=== PATIENT | male | born 1990 | race Caucasian/White ===

== ENCOUNTER 2020-07-10 15:24 | Outpatient (REF) | payer OTHER, SELFPAY | END 2020-07-10 15:25 | disposition home or self-care (01) | LOC: HO.LAB 15:24 | PROVIDERS: PCP Internal Medicine; Visit Provider Internal Medicine | DX: Z20.828 Contact with and (suspected) exposure to other viral communicable diseases (principal) | CPT/HCPCS: 87635 ==

== ENCOUNTER 2022-06-28 13:00 | Emergency (ER) | payer OTHER, SELFPAY ==
[2022-06-28 13:22] VITALS: BP 165/96; PULSE 95; RESP 18; TEMP 36.8; O2SAT 97; BMI 48.1
[2022-06-28] MEDS: Cyclobenzaprine HCl 10 MG TABLET PO (14:03)
--- NOTE | 2022-06-28 14:03 | ED.BACK ---
HPI - Back Pain/Injury General Chief Complaint: Back Pain/Injury Stated Complaint: lower back pain Time Seen by Provider: 06/28/22 13:21 Source: patient Mode of arrival: EMS Limitations: no limitations History of Present Illness HPI Narrative: Patient presents emergency department for evaluation of lower back pain. Reports onset to be about 4 days ago. Was having some mild discomfort to the right lower back, but seems to have exacerbated since yesterday. States he was attempting to stretch when he felt onset of a very bad muscle spasm. Pain at times is radiating to the right leg posterior and medial thigh. Last night he took methocarbamol it is prescribed to his father and he did have some relief with that medication. At 09:00 today he took ibuprofen 400 mg orally, and acetaminophen 500 mg orally. He denies any injury, states that he does sit for prolonged periods for work. Reports a history of similar pain in the past however pain has typically been on left previously and not as severe as it is currently. Denies recent precipitating injury, fevers, chills, burning with micturition, urinary frequency/urgency/hesitancy, bladder or bowel dysfunction, numbness or tingling of the perineum or bilateral legs. Denies any recent surgical procedures, any known immune compromising conditions, personal history of cancer, or IV drug usage. MD elicited complaint: back pain Related Data Previous Rx's Medication Instructions Recorded cyclobenzaprine 10 mg tablet 10 mg PO TID PRN muscle spasm #20 06/28/22 tabs prednisone 50 mg tablet 50 mg PO DAILY 5 days #5 tabs 06/28/22 Allergies Allergy/AdvReac Type Severity Reaction Status Date / Time No Known Drug Allergies Allergy Unknown Verified 06/28/22 13:22 Review of Systems Review of Systems: Constitutional: No weight loss, fever, chills, weakness or fatigue. HEENT: No visual loss, blurred vision, double vision. No hearing loss, sneezing, congestion, runny nose or sore throat. Skin: No rash or itching. Cardiovascular: No chest pain, chest pressure or chest discomfort. No palpitations or pedal edema. Respiratory: No shortness of breath, cough or sputum production. Gastrointestinal: No anorexia, nausea, vomiting or diarrhea. No abdominal pain or blood in stool. Genitourinary: No burning micturition. No urinary frequency or incontinence. Neurologic: No headache, dizziness, syncope, unilateral weakness, ataxia, numbness or tingling in the extremities. No change in bowel or bladder control. Musculoskeletal: + Back pain as noted in HPI. No joint pain or stiffness. Hematologic: No bleeding or bruising. Lymphatics: No enlarged lymph nodes. Psychiatric:No depression or anxiety. Endocrine: No reports of sweating. No cold or heat intolerance. No polyuria or polydipsia. Yes all other systems are reviewed and are negative PMFSH Past Medical History Attestation statement: The following information was validated with the patient. Source: old records reviewed Social History Social History Advance Directives: No Advance Directives Information Provided: No Physical Exam Vital Signs: Vital Signs: Last Vital Signs Temp 98.2 F 06/28/22 13:22 Pulse 95 06/28/22 13:22 Resp 18 06/28/22 13:22 BP 165/96 H 06/28/22 13:22 Pulse Ox 97 06/28/22 13:22 O2 Del Method 06/28/22 13:22 BMI result Body Mass Index 48.1 Vital signs have been reviewed as normal and appeared to be correct. Blood pressure normal.? Heart rate normal.? Respiration rate normal. Temperature normal.? Oxygen saturation normal. Appearance: Alert.?Oriented to person, place and time. No acute distress.?Normal affect. Eyes: Pupils equal, round and reactive to light.? ENT: Pharynx normal.?? Neck: Normal inspection.? Neck supple.?? CVS: Heart sounds normal. Normal heart rate and rhythm.? Pulses normal; bilateral radial pulses 2+, bilateral posterior tibial/dorsalis pedis pulses 2+.? Respiratory: No respiratory distress.? Lung sounds clear to auscultation bilaterally?? Abdomen: Soft and non-tender. Normoactive bowel sounds. No pulsatile mass.?? Skin: Skin warm and dry.? Normal skin color.? Normal skin turgor.?? Extremities: No lower extremity edema.? No calf ttp? Back: + mild right paraspinal muscular tenderness from lumbar region to coccyx. No CVA tenderness. No midline spinal tenderness, step-off's, or deformity. Full ROM intact in bilateral lower extremities. Straight leg test positive on right; Straight leg test negative on left. No rashes, lesions, areas of induration or fluctuance, or signs of infection noted. Neuro: Moves all extremities spontaneously. 5/5 strength in hip extension/flexion, abduction, adduction. Sensation to light touch intact bilaterally. Patellar and Achilles reflex 2+ bilaterally. No ataxia, slow antalgic gait.. No focal neuro deficits. Course Course Course Narrative: patient is a 32-year-old obese male with no significant past medical history, not routinely followed by primary care provider. Presenting to emergency department for acute right lower back pain. No precipitating injury. At the time of examination, Pain appears most consistent with muscular pain, although cannot completely exclude herniated disc. On neurological exam there are no deficits. Not consistent with spinal fracture, spinal infection, epidural abscess, AAA, epidural abscess, or dissection. No high risk past medical history including incontinence, fever, immunosuppression, recent surgery or lumbar puncture, coagulopathy, significant trauma, recent unintentional weight loss, pulsatile mass, history of cancer, history of TB, history of IV drug use that would warrant MRI or CT. Not consistent with pyelonephritis, urinary tract infection, renal calculi, appendicitis, diverticulitis. On exam no concern for cauda equina syndrome. No imaging is currently indicated at this time. will trial cyclobenzaprine reassess ambulation status afterwards. Disposition pending results. Reevaluation(s) Reevaluation #1: Patient reported improvement in pain after receiving cyclobenzaprine pain was 2/10. Was able to get out of bed unassisted, ambulate, upon sitting back down began feeling sharp and more severe pain again to the same area. Will obtain CT of the lumbar spine to evaluate for disc herniation and/or compression fracture. Time: 15:45 Reevaluation #2: CT reveals partially calcified posterior disc protrusion at L3-L4, L4-L5, and L5-S1 with moderate narrowing of spinal canal, lateral recess, and foraminal stenosis. discussed these findings with patient and his mother. Based on the area of injury, this explains his symptoms that he is currently having particularly with mass effect on the S1 nerve root. Discussed plan of care for discharge home, will provide prescription for short course of prednisone, as well as prescription for cyclobenzaprine. Advised patient will need outpatient follow-up with forestry extension specialist that may be done at [facility], or as a requested they could contact [facility] spine program to be evaluated there. Furthermore suggested the patient obtain a primary care provider. We reviewed worrisome signs and symptoms that he should return back to the emergency department for. All questions were answered. Patient was discharged home in stable condition, ambulatory with a steady gait. Time: 17:41 MDM - Back Pain/Injury Medical Records Attestation: I reviewed the patient's medical records. Imaging Data CT lumbar spine: Radiologist's impression: CT/CT lumbar spine wo IV con IMPRESSION: ? 1. Partially calcified posterior disc protrusions at L3-L4, L4-L5, and L5-S1 with canal spinal canal, lateral recess, and foraminal stenosis, as above. 2. No subluxation or fracture. Discharge Plan Discharge Clinical Impression: Protrusion of lumbar intervertebral disc, Central stenosis of spinal canal, Acute lumbar radiculopathy Patient Disposition: Home, Self-Care Instructions: Acute Low Back Pain (ED), Lumbar Radiculopathy (ED), Lower Back Exercises (ED) Additional Instructions: As we discussed, on CT there is evidence of posterior disc protrusion at L3-L4, L4- L5, and L5-S1 with central spinal canal stenosis and foraminal stenosis. There is some mass effect on the transversing S1 nerve root on the right greater than the left. You have been given a prescription for prednisone, please take this daily for 5 days. Take this with food or milk to prevent any stomach upset. You have also been given a prescription for cyclobenzaprine, this is a muscle relaxant, may be taken every 8 hours as needed for pain. This medication may make you drowsy. You should not drive, drink alcohol, operate machinery, or work while taking this medication. It is recommended that you have outpatient follow-up with a back specialist, we discussed local specialist such as [facility], [facility] spine center is another option as you stated. Please contact their office is to try and obtain a new patient visit and determine what is required for this. Additionally, it is recommended that you establish care with a primary care provider, you may contact primary care offices associated with the [facility] system or you may contact your insurance company to find a provider in network. Prescriptions: New cyclobenzaprine 10 mg tablet 10 mg PO TID PRN (Reason: muscle spasm) Qty: 20 0RF prednisone 50 mg tablet 50 mg PO DAILY 5 Days Qty: 5 0RF
[2022-06-28 14:05] VITALS: BP 188/102; PULSE 90; O2SAT 97
--- NOTE | 2022-06-28 15:20 | PC.NURSE ---
pt able to sit as side of bed without assistance, ambulated around room, well tolerated by patient. Stated that he feels much better than when I came in pt rating pain 2-3/10
--- NOTE | 2022-06-28 15:26 | PC.NURSE ---
nurse was called into pt room at 1524, patient now sitting at bedside, states right lower hip is now causing pain, shaking in right leg.will make provider aware
[2022-06-28] MEDS: Ibuprofen 600 MG TABLET PO (16:28)
== END 2022-06-28 18:39 | disposition home or self-care (01) ==
PROVIDERS: Emergency Provider Emergency Medicine
DX: M54.16 Radiculopathy, lumbar region (principal); M54.2 Cervicalgia; R51.9 Headache, unspecified; Z79.899 Other long term (current) drug therapy
CPT/HCPCS: 72131; 96372; 99283; 99284